=== PATIENT | male | born 1955 | race Caucasian/White ===

== ENCOUNTER → 2024-10-15 13:49 | Outpatient (REF) | payer OTHER, SELFPAY | LOC: HWRAD 13:49 | PROVIDERS: ATTENDING PHYSICIAN Family Medicine | DX: M54.50 Low back pain, unspecified (principal) | CPT/HCPCS: 72110 ==

== ENCOUNTER → 2024-12-16 14:51 | Outpatient (REF) | payer OTHER, SELFPAY | LOC: HWRAD 14:51 | PROVIDERS: ATTENDING PHYSICIAN Surgery; FAMILY PHYSICIAN Family Medicine | DX: N20.2 Calculus of kidney with calculus of ureter (principal) | CPT/HCPCS: 74176 ==